=== PATIENT | female | born 1965 | race Caucasian/White ===

== ENCOUNTER 2018-03-10 19:49 | Emergency (ER) | payer MEDICAID ==
[2018-03-10 23:03] LABS: ADD UMIC NO; UR ASCORBIC ACID NEGATIVE (NEGATIVE); UR BILIRUBIN (Dip) NEGATIVE (NEGATIVE); UR BLOOD (Dip) NEGATIVE (NEGATIVE); UR CLARITY CLEAR (CLEAR); UR COLOR YELLOW (YELLOW); UR GLUCOSE (Dip) 3+ mg/dL (NEGATIVE); UR KETONES (Dip) NEGATIVE (NEGATIVE); UR LEUKOCYTE ESTERASE (Dip) NEGATIVE Leu/ul (NEGATIVE); UR NITRITE (Dip) NEGATIVE (NEGATIVE); UR SPECIFIC GRAVITY (Dip) 1.036 (1.003-1.030); UR TOTAL PROTEIN (Dip) NEGATIVE (NEGATIVE); UR UROBILINOGEN (Dip) NEGATIVE (NEGATIVE)
[2018-03-11] MEDS: morphine 4 MG/ML VIAL IM (00:26)
[2018-03-11] MEDS: LIDOCAINE 1% (MDV) 20 ML INJ SC (00:27)
== END 2018-03-11 02:19 | disposition home or self-care (01) ==
LOC: FTE 03-11 02:19
DX: L02.215 Cutaneous abscess of perineum (principal); E11.9 Type 2 diabetes mellitus without complications
CPT/HCPCS: 56405; 76536; 81003; 81025; 87086; 96372; 99284-25

== ENCOUNTER 2018-03-12 14:39 | Emergency (ER) | payer MEDICAID | END 2018-03-12 17:00 | disposition home or self-care (01) | LOC: FTE 14:39 | DX: Z48.01 Encounter for change or removal of surgical wound dressing (principal); E11.9 Type 2 diabetes mellitus without complications | CPT/HCPCS: 99281; Z7502 ==

== ENCOUNTER 2018-03-14 10:57 | Emergency (ER) | payer MEDICAID | END 2018-03-14 11:49 | disposition home or self-care (01) | LOC: FTE 11:49 | DX: L02.215 Cutaneous abscess of perineum (principal); E11.9 Type 2 diabetes mellitus without complications | CPT/HCPCS: 99281 ==